=== PATIENT | female | born 2000 | race Caucasian/White ===

== ENCOUNTER → 2018-02-13 18:52 | Outpatient (CLI) | payer OTHER, SELFPAY ==
[2018-02-13 11:05] VITALS: BMI 26.7
--- OUTSIDE RECORDS SUMMARY | 2018-05-18 06:14 | XMS RPT_ITS ---
:2000 Author Organization OHIP Care Team Providers Name Role Phone Carmella Tejada Attending Unavailable Mallory, Carmella Attending Unavailable Equinunk, Carmella Attending Unavailable Mallory, Carmella Referring Unavailable PROBLEMS PROBLEMS DATE TYPE CONDITION / CODE ATTENDING STATUS SOURCE 02/14/2018 Unknown Z11.3 - Encounter Carmella Tejada Active Jason for screening for Community infections with a Hospital predominantly Repository sexual mode of transmission / Z11.3(ICD-10) 02/13/2018 Unknown N92.0 - Excessive Equinunk, Molly Active Jason and frequent Community menstruation with Hospital regular cycle / Repository N92.0(ICD-10) 02/13/2018 Unknown Z30.41 - Encounter Carmella Tejada Active Jason for surveillance of Community contraceptive pills Hospital / Z30.41(ICD-10) Repository PROCEDURES PROCEDURES No Procedure Records FoundRESULTS RESULTS SEMICONDUCTOR WAFERS ETCHER STRIPPER OFFICE VISIT Observed: 02/13/2018 Status: F Source: JASON REPORT 11:42 AM [facility] HOSPITAL REPOSITORY [facility] [address] [place] [address]. [address] [place] [address] OFFICE VISIT Date of Service: 02/13/18 MR#: [id number] Acct: [id number] Name: ESTEBAN VACA Rep #: [id number] : 2000 Provider: WILLY Tejada Age/Sex: 17/F [place] [facility] [place]: Signed Intake Vital Signs02/13/18 Height 5 ft 2 in 02/13/18 Weight: 146 lb 6 oz 02/13/18 Body Mass Index (BMI) 26.7 02/13/18 Blood Pressure 120/80 Intake Visit Reasons: Control Refill Associate Juvenile Court Judge Required: No Is patient in pain?: No Allergies No Known Allergies Allergy (Unverified 02/13/18 11:06) Medications levonorgestrel-ethinyl estradiol 0.1 mg-20 mcg tablet 1 tab PO QDAY #84 tab 02/13/18 [Rx Confirmed 02/13/18] Post menopausal: No Patient : No : No PFSH Social History Smoking Status: Never smoker alcohol intake: never substance use type: does not use seatbelt use: always do you feel safe at home: Yes HPI Control Refill: Details: ESTEBAN VACA is a 17 year old who presents for 1 year follow up use of Aviane for heavy menses. States works well. Denies side effects and wishes to continue. Now sexually partner. First partner for both. Female Reproductive History Cycle Length: 21-35 Bleeding Duration: 4 Questions: Metorrhagia: No, Sexually active: Yes, Dyspareunia: No, PCB: No Pregancy History 0 Elective abortions Hx Para Spontaneous abortions ROS Const Constitutional: Reports system reviewed and no additional complaints, except as docu GI GI: Denies abdominal pain or change in bowel habits Exam Const General: cooperative, healthy appearing Nutritional Appearance: well nourished Orientation: oriented x3 Neck Neck mass: No Thyroid: thyroid normal Resp Effort AND Inspection: normal respiratory effort Auscultation: clear to auscultation bilaterally Cardio Rate: regular rate Rhythm: regular rhythm Assessment AND Plan Problems 1. Menorrhagia with regular cycle N92.0 2. Oral contraceptive pill surveillance Z30.41 3. Screen for STD (sexually transmitted disease) Z11.3 Plan Refill Aviane, reviewed use, risks. Reviewed condom use GCC call only if positive RTO 1 year, prn with problems Medications Refilled: Coding Level of Care Code Off vis,est,level 3 Diagnoses Menorrhagia with regular cycle N92.0 Oral contraceptive pill surveillance Z30.41 Screen for STD (sexually transmitted disease) Z11.3 02/13/18 1142 <Electronically signed by Carmella LIMA> Date Carmella LIMA Cosigner Signature: Date (if applicable) CC: ALLERGIES ALLERGIES DATE TYPE / CODE NAME / CODE REACTION SEVERITY SOURCE 02/13/2018 Drug No Known Unknown [place] [facility] Allergy/4160 Allergies/F00 Hospital [address](SNOMED [id number](RXNOR Repository CT) M) ENCOUNTERS ENCOUNTERS ADMIT/DISCHARGE ACCOUNT ADMITTING ENCOUNTER LOCATION SOURCE NUMBER CLASS 02/13/2018 [id number] Ambulatory [place] [address] [facility] ing:LABSPEC Repository 02/13/2018/ [id number] Ambulatory BMSBuilding:B [place] [address] [place] Repository 05/04/2017 [id number] Ambulatory BMSBuilding:B [place] [address] [place] Repository PAYERS PAYERS ENCOUNTER GUARANTOR PAYER SUBSCRIBER SOURCE 02/13/2018 ESTEBAN [id number] Primary MAUREEN Poe [address], Insurance:MEDICAL WADEDOB: [place] [address]Tel: [facility] [id number] Hospital Number: Repository () [id number] Date:[id number] [address] [address]KN: 02/13/2018 Secondary NOT GIVENUNK Jason Insurance:SELF PAY [facility] Number: Effective Repository Date:2018-02-13 02/13/2018 ESTEBAN [id number] Primary MAUREEN Poe [address], Insurance:MEDICAL WADEDOB: [place] [address]Tel: [facility] [id number] Hospital Number: Repository () [id number] Date:[id number] [address]RJ: 02/13/2018 Secondary NOT GIVENUNK Jason Insurance:SELF PAY [facility] Number: Effective Repository Date:2018-01-12 05/04/2017 Primary NOT GIVENUNK Jason Insurance:SELF PAY [facility] Number: Effective Repository Date:2017-05-02
== END ==
PROVIDERS: Referring Provider Nurse Practitioner Women's Health; Visit Provider Nurse Practitioner Women's Health
DX: Z11.3 Encounter for screening for infections with a predominantly sexual mode of transmission (principal)
CPT/HCPCS: 87491; 87591

== ENCOUNTER → 2019-04-04 | Outpatient (CLI) | payer OTHER, SELFPAY ==
[2019-04-04 14:01] VITALS: BMI 26.7
[2019-04-04 21:51] LABS: Chlamydia Trachomatis by PCR Negative (Negative); Neisserai gonorrhoeae by PCR Negative (Negative); Probe Check PASS; Sample Adequacy Control PASS; Specimen Processing Control PASS
== END | disposition home or self-care (01) ==
LOC: LABSPEC 16:46
PROVIDERS: PCP Nurse Practitioner Family; Referring Provider Nurse Practitioner Women's Health; Visit Provider Nurse Practitioner Women's Health
DX: Z11.3 Encounter for screening for infections with a predominantly sexual mode of transmission (principal)
CPT/HCPCS: 87491; 87591

== ENCOUNTER → 2020-04-08 | Outpatient (CLI) | payer OTHER, SELFPAY ==
[2020-04-11 20:07] LABS: Chlamydia By Nucleic Acid AMP Negative (Negative)
[2020-04-11 21:09] LABS: Gonococcus By Nucleic Acid AMP Negative (Negative)
[2020-04-14 14:43] LABS: HPV Reflexed? NOT INDICATED
== END | disposition home or self-care (01) ==
LOC: LABSPEC 16:26
PROVIDERS: PCP Nurse Practitioner Family; Referring Provider Nurse Practitioner Women's Health; Visit Provider Nurse Practitioner Women's Health
DX: Z12.4 Encounter for screening for malignant neoplasm of cervix (principal); Z11.3 Encounter for screening for infections with a predominantly sexual mode of transmission
CPT/HCPCS: 87491; 87591; 88175; G0145

== ENCOUNTER → 2023-01-26 | Outpatient (CLI) | payer OTHER, SELFPAY ==
[2023-01-26 12:12] LABS: Absolute Lymphocyte Count 1.85 X10^3/uL (0.83-4.51); Absolute Neutrophil Count 2.3 X10^3/uL (2.0-7.7); Basophil# 0.03 X10^3/uL; Basophil% 0.6 % (0-1); Eosinophil# 0.22 X10^3/uL; Eosinophils% 4.7 % (0-5); Hemoglobin 14.2 g/dL (12.0-15.0); Lymphocyte # 1.85 X10^3/ul (0.83-4.51); Lymphocyte % 39.1 % (19-41); Mean Corpuscular Hgb 28.1 pg (27.0-32.0); Mean Platelet Vol. 12.1 fl (6.2-12.0); Monocyte# 0.31 X10^3/uL; Monocyte% 6.6 % (0-10); NRBC Flagged by Analyzer 0 % (0-5); Neutrophil # 2.31 X10^3/uL (2.7-7.7); Neutrophil % 48.8 % (47-70); Platelet Count 327 K/mm3 (150-450); RBC Distribution Width CV 13.4 % (11.6-14.6); RBC Distribution Width SD 41.6 fl (35.1-43.9); Red Blood Count 5.06 M/mm3 (4.2-5.4); White Blood Count 4.7 K/mm3 (4.4-11.0)
[2023-01-26 12:47] LABS: ALB/GLOB Ratio 0.9 RATIO (0.9-2.4); AST(SGOT) 18 U/L (15-37); Alanine Aminotransfer ALT/SGPT 18 U/L (13-56); Albumin, Serum 3.7 g/dL (3.2-5.0); Alkaline Phosphatase 76 U/L (45-117); Anion Gap 9 (5-15); BUN 10 mg/dL (7-18); BUN/Creat Ratio 13.8 RATIO (10-20); Calcium,Total 8.7 mg/dL (8.5-10.1); Chloride 108 mmol/L (98-107); Cholesterol 198 mg/dL (200); Creatinine, Serum 0.72 mg/dL (0.55-1.02); EST Glomerular Filtration Rate 105 mL/min (>60); Est Glom Filt Rate - Afr Amer 127 mL/min (>60); Globulin 3.9 g/dL (2.2-4.2); Glucose 91 mg/dL (74-106); High Density Lipoprotein 58 mg/dL; Potassium 4.1 mmol/L (3.5-5.1); Protein, Total 7.6 g/dL (6.4-8.2); Sodium Level 139 mmol/L (136-145); Thyroid Stim Hormone (TSH) 0.85 uIU/mL (0.358-3.74); Triglycerides 53 mg/dL; Very Low Density Lipoprotein 11 mg/dL (5-40)
[2023-01-26 13:00] LABS: Hemoglobin A1c 5.1 % (3.8-5.6)
== END | disposition home or self-care (01) ==
LOC: MFPLAB 10:16
PROVIDERS: PCP Family Medicine; Visit Provider Family Medicine
DX: Z00.00 Encounter for general adult medical examination without abnormal findings (principal); Z13.1 Encounter for screening for diabetes mellitus; Z13.220 Encounter for screening for lipoid disorders; Z13.29 Encounter for screening for other suspected endocrine disorder; Z13.0 Encounter for screening for diseases of the blood and blood-forming organs and certain disorders involving the immune mechanism
CPT/HCPCS: 36415; 80053; 80061; 83036; 84443; 85025

== ENCOUNTER → 2023-05-02 | Outpatient (CLI) | payer OTHER, SELFPAY ==
[2023-05-20 08:35] LABS: HPV Reflexed? NOT INDICATED
== END | disposition home or self-care (01) ==
LOC: LABSPEC 15:41
PROVIDERS: PCP Family Medicine; Referring Provider Nurse Practitioner Women's Health; Visit Provider Nurse Practitioner Women's Health
DX: Z12.4 Encounter for screening for malignant neoplasm of cervix (principal)
CPT/HCPCS: 88175; G0145

== ENCOUNTER → 2024-01-24 | Outpatient (CLI) | payer OTHER, SELFPAY ==
[2024-01-24 11:59] LABS: Absolute Lymphocyte Count 2.21 X10^3/uL (0.83-4.51); Absolute Neutrophil Count 2.4 X10^3/uL (2.0-7.7); Basophil# 0.04 X10^3/uL; Basophil% 0.8 % (0-1); Eosinophils% 3.8 % (0-5); Hematocrit 42.5 % (37-47); Hemoglobin 13.9 g/dL (12.0-15.0); Lymphocyte # 2.21 X10^3/ul (0.83-4.51); Lymphocyte % 42.1 % (19-41); Mean Corp Hgb Conc 32.7 g/dL (32-36); Mean Corpuscular Hgb 27.7 pg (27.0-32.0); Mean Corpuscular Volume 84.8 fL (81-99); Mean Platelet Vol. 12.2 fl (6.2-12.0); Monocyte# 0.37 X10^3/uL; NRBC Flagged by Analyzer 0 % (0-5); Neutrophil # 2.41 X10^3/uL (2.7-7.7); Neutrophil % 45.9 % (47-70); Platelet Count 335 K/mm3 (150-450); RBC Distribution Width CV 13.3 % (11.6-14.6); RBC Distribution Width SD 41.6 fl (35.1-43.9); Red Blood Count 5.01 M/mm3 (4.2-5.4); White Blood Count 5.3 K/mm3 (4.4-11.0)
[2024-01-24 12:40] LABS: ALB/GLOB Ratio 0.9 RATIO (0.9-2.4); AST(SGOT) 13 U/L (15-37); Alanine Aminotransfer ALT/SGPT 25 U/L (13-56); Albumin, Serum 3.7 g/dL (3.2-5.0); Alkaline Phosphatase 64 U/L (45-117); Anion Gap 5 (5-15); BUN 9 mg/dL (7-18); BUN/Creat Ratio 11.8 RATIO (10-20); Calcium,Total 9.1 mg/dL (8.5-10.1); Chloride 106 mmol/L (98-107); Cholesterol 231 mg/dL (200); Creatinine, Serum 0.76 mg/dL (0.55-1.02); EST Glomerular Filtration Rate 98 mL/min (>60); Est Glom Filt Rate - Afr Amer 119 mL/min (>60); Globulin 3.9 g/dL (2.2-4.2); Glucose 100 mg/dL (74-106); High Density Lipoprotein 54 mg/dL; Potassium 4.2 mmol/L (3.5-5.1); Protein, Total 7.6 g/dL (6.4-8.2); Sodium Level 137 mmol/L (136-145); Triglycerides 128 mg/dL; Very Low Density Lipoprotein 26 mg/dL (5-40)
== END | disposition home or self-care (01) ==
LOC: BIMLAB 09:54
PROVIDERS: PCP Internal Medicine; Referring Provider Internal Medicine; Visit Provider Internal Medicine
DX: Z00.00 Encounter for general adult medical examination without abnormal findings (principal)
CPT/HCPCS: 36415; 80053; 80061; 85025

== ENCOUNTER 2024-03-18 08:59 | Emergency (ER) | payer OTHER, SELFPAY ==
[2024-03-18 09:00] VITALS: BP 161/84; PULSE 92; RESP 16; TEMP 36.7; O2SAT 99; BMI 35.3
--- NOTE | 2024-03-18 09:42 | CT_ITS ---
STUDY: CT ABDOMEN AND PELVIS WITH CONTRAST REASON FOR EXAM: Female, 23 years old. Diffuse abdominal pain RADIATION DOSAGE (If Supplied By Facility): CTDIvol = ( 11.93 ) mGy, DLP = ( 923.51 ) mGycm TECHNIQUE: Transaxial images were obtained from the dome of the diaphragm to the symphysis pubis without oral contrast. IV 100mL Isovue-300 was administered. Sagittal and coronal images were reconstructed. Individualized dose optimization techniques were used for this CT. COMPARISON: None. FINDINGS: The visualized lung bases are unremarkable. The visualized portions of the heart are within normal limits. Normal liver. Normal gallbladder and extrahepatic biliary system. Normal spleen. Normal pancreas. Normal bilateral adrenal glands. Normal right kidney. Normal left kidney. Subtle submucosal thickening in the gastric antrum and pyloric channel suggests gastritis. Small and large bowel loops are decompressed and do not contain oral contrast. There is evidence of submucosal fat deposition in multiple bowel loops which can be a sign of inflammatory bowel disease. The appendix is visualized and appears normal. Appendix seen on coronal recon images 51 through 56 Normal abdominal aorta. Normal inferior vena cava. Normal retroperitoneum. Normal urinary bladder. Normal appearing uterus, no suspicious adnexal mass or free fluid Normal abdominal wall. Normal osseous structures. CT/Abdomen/Pelvis W IV Cont ONLY IMPRESSION: Submucosal thickening and edema in the gastric antrum and pyloric channel suggests gastritis Small and large bowel loops are decompressed. No CT evidence of obstruction or ileus. However, there is evidence of submucosal fat and position of bowel loops which can be a sign of inflammatory bowel disease. No suspicious solid organ abnormality No free intraperitoneal fluid, air, or suspicious adenopathy, normal appendix visualized Electronically Signed: Daniel Vera MD at 11:07 EST ,
--- NOTE | 2024-03-18 09:43 | ED.VIS.GI ---
HPI HPI - GI History of Present Illness Chief Complaint: Abd Pain Informant: patient Abdominal Pain/Flank Pain Onset: Days Context: Gradual Onset Timing: Continuous Quality: Aching Location: Diffuse Current Severity: Mild Maximum Severity: Mild Worsened by: Nothing Relieved by: Nothing Nausea/Vomiting/Emesis GI Symptom: Positive for Nausea and Vomiting Onset: Days Severity: Moderate Diarrhea/Melena/Hematochezia GI Symptom: Negative for Diarrhea, Melena or Hematochezia Associated Symptoms Associated Symptoms: Negative for Dysuria, Frequency, Hematuria or Urgency Narrative Narrative: 23-year-old female no seen past medical history. No prior abdominal surgeries. Last menstrual period was about 2 weeks ago. Never been . States she has had abdominal discomfort with nausea vomiting since Monday. Denies fever. She has had mild chills. No dysuria. She is having no diarrhea and really has not had a bowel movement for several days. Says she was seen at another emergency department on Monday they gave her IV fluids and did labs. Patient states he never really found a day with her labs. Prior similar symptoms: No Recent Illness/Hospitalization: No PFSH [facility] Medical History Gastritis Health care maintenance Home Medications ?Medication ?Instructions ?Recorded ?Last Taken ?Type levonorgestrel-ethinyl estradiol 1 tab PO QDAY #84 tabs 05/24/23 Unknown Rx 0.1 mg-20 mcg tablet (Aviane) cetirizine 10 mg tablet (Zyrtec) 10 mg PO QDAY 01/24/24 Unknown History famotidine 20 mg tablet (Pepcid) 20 mg PO QDAY PRN 01/24/24 Unknown History fluticasone propionate 50 1 spray intranasal QDAY PRN 01/24/24 Unknown History mcg/actuation nasal spray,suspension (Flonase Allergy Relief) guaifenesin 1,200 mg tablet, 1,200 mg PO ONCE PRN 01/24/24 Unknown History extended release 12 hr (Mucinex) omeprazole 40 mg capsule,delayed 40 mg PO QDAY #90 caps 01/24/24 Unknown Rx release ondansetron 4 mg disintegrating 4 mg PO Q6H PRN nausea and 03/18/24 Unknown Rx tablet vomiting #10 tabs Allergy/AdvReac Type Severity Reaction Status Date / Time No Known Allergies Allergy Verified 03/18/24 09:00 Family History Grandmother Breast cancer Anxiety Mother Anxiety Grandfather TIA (transient ischemic attack) Social History adopted: No household members: spouse current occupational status: employed 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 current occupational exposures/hazards: No Smoking Status: Never smoker alcohol intake: current alcohol intake frequency: a few times a month details: couple times per month substance use type: does not use what type of physical activity do you participate in: walking frequency: 1-2 times per week duration: 15-30 minutes/day seatbelt use: always do you feel safe at home: Yes ROS ROS ED ROS Narrative Nausea and vomiting. Abdominal pain. Constitutional Constitutional ED: Reports chills ENT ENT ED: Denies ear pain Cardiovascular Cardiovascular: Denies chest pain Respiratory/Chest Respiratory/Chest: Denies cough Gastrointestinal Gastrointestinal: Reports abdominal pain, nausea and vomiting; Denies diarrhea or melena Genitourinary Genitourinary ED: Denies dysuria or hematuria Musculoskeletal Musculoskeletal: Denies arthralgias Integumentary Denies abscess Neurologic Neurologic: Denies headache(s) Psychiatric Psychiatric: Denies anxiety Endocrine Endocrinology: Denies polydipsia Hematologic/Lymphatic Hematologic/Lymphatic: Denies easy bleeding or easy bruising Allergic/Immunologic Allergic/Immunologic ED: Denies mouth swelling, tongue swelling or urticaria EXAM Physical Exam Narrative Exam Narrative: Well-appearing 23-year-old female. Vital signs stable afebrile. H EENT exam pupils round reactive light. Moist mucous membranes. Neck nontender no lymphadenopathy. Lungs clear to auscultation bilaterally. Heart regular rhythm rate about 90 no murmur. Chest wall nontender. Back nontender. Abdomen soft mild diffusely tender no specific localizing tenderness. No McBurney's point tenderness. No hernia or mass. No obstruction or distention. Moving all 4 extremities. Nontender no edema. Normal strength. Normal range of motion. Neurologically she is awake and alert no focal motor deficits. Const Vital Signs: 03/18/24 09:00 03/18/24 11:00 03/18/24 13:00 Temperature 98.0 F Temperature Source Oral Pulse Rate 92 68 87 Respiratory Rate 16 16 16 Blood Pressure 161/84 H 136/81 H Blood Pressure Mean 109 99 Pulse Ox 99 99 99 Oxygen Delivery Method Room Air Room Air Positive well nourished and well developed; Negative for cachectic, contractures or unkempt General Appearance ED: well developed and NAD; Negative for unkempt, cachectic, contractures or pallor Nutritional Appearance: Negative for cachectic HEENT Reports moist mucous membranes normocephalic and atraumatic; Negative for trauma or tenderness Eyes PERRL and EOMs intact bilaterally General Eye ED: Negative for pale conjunctiva or scleral icterus Neck no lymphadenopathy, supple and no JVD General: Negative for tenderness Lymph Lymphatic: Negative for other Resp normal respiratory effort and clear to auscultation bilaterally Effort and Inspection: Negative for respiratory distress Auscultation: Negative for rales, rhonchi, wheezes or diminished lung sounds Cardio regular rate, regular rhythm, S1 normal heart sound, S2 normal heart sound and no murmurs Rate: Negative for bradycardia or tachycardic Rhythm: Negative for abnormal rhythm GI non-distended and no masses; Negative for non-tender GI Narrative: Mildly diffusely tender. No peritoneal signs. No specific right upper or right lower quadrant tenderness. No hernia or mass. No obstruction. Inspection: Negative for abdominal distention Palpation: soft and tender; Negative for guarding, rigid or rebound tenderness present Back/Spine no CVA tenderness General Back: Negative for CVA tenderness Cervical Spine: Negative for cervical spine tenderness Thoracic Spine / Upper Back: Negative for thoracic spinal tenderness Lumbar Spine / Lower Back: Negative for lumbar spinal tenderness Coccyx: Negative for other Extremity full ROM General Extremety ED: Negative for edema or tenderness General Extremity: Negative for edema Neuro CN's II-XII intact bilaterally and moves all extremities Sensorium / Orientation: alert, oriented to person, oriented to place and oriented to time; Negative for orientation impaired, confused or lethargic Motor Exam: strength 5/5 throughout Psych mental status grossly normal and thought process normal Appearance: Negative for unkempt Attitude: No agitated Mood & Affect: Negative for depressed, anxious or tearful Skin no wounds General Skin Exam: Negative for jaundice or pallor Lesions: no lesions Rashes: no rashes Trauma: Negative for abrasion Nails: Negative for discolored MDM MDM MDM Narrative Medical decision making narrative: 23-year-old female nausea and vomiting suspect viral syndrome however she is not improving and is complaining of abdominal discomfort with mild tenderness. CAT scan labs are being obtained. IV Zofran for nausea. IV fluids. Repeat exam patient is doing well at 1:25 PM. Abdomen benign. We went over her lab work and her CAT scan. I feel this is a viral syndrome. She will be discharged home with Zofran. Fluids and rest. Follow-up with not improving or return if worse. Patient is comfortable with the plan. History & Record Review Discussion w/independent historian: Patient Additional record(s) reviewed:: Prior inpatient record, Prior outpatient record, Prior ED visit and Prior labs Lab Data Attestation: I reviewed the patient's lab results. Lab results narrative: CBC shows a white count of 7. H&H 14 and 43. Platelets 350. Electrolytes show gap 11. Normal BUN of 8 and creatinine 0.8. Glucose 98. Liver enzymes are unremarkable. Lipase normal at 54. Serum test negative. UA negative. CAT scan no acute abnormality. Labs: Laboratory Results - last 24 hr 03/18/24 03/18/24 09:23 10:26 WBC 7.8 RBC 5.22 Hgb 14.7 Hct 43.3 MCV 83.0 MCH 28.2 MCHC 33.9 RDW Std Deviation 39.3 RDW Coeff of Adryan 13.2 Plt Count 350 MPV 12.0 Immature Gran % (Auto) 0.500 Neut % (Auto) 70.8 H Lymph % (Auto) 23.1 [place] % (Auto) 4.6 Eos % (Auto) 0.5 Baso % (Auto) 0.5 Absolute Neuts (auto) 5.5 Absolute Lymphs (auto) 1.79 Nucleated RBC % 0 Sodium 138 Potassium 3.5 Chloride 105 Carbon Dioxide 22.0 Anion Gap 11 BUN 8 Creatinine 0.82 Estim Creat Clear Calc 107.75 Est GFR (MDRD) Af Amer 110 Est GFR (MDRD) Non-Af 91 BUN/Creatinine Ratio 9.8 L Glucose 98 Calcium 10.0 Total Bilirubin 0.50 AST 15 ALT 20 Alkaline Phosphatase 67 Total Protein 8.5 H Albumin 4.1 Globulin 4.4 H Albumin/Globulin Ratio 0.9 Lipase 54 Serum , Qual NEGATIVE Urine Color Yellow Urine Clarity Clear Urine pH 6.0 Ur Specific [place] 1.010 Urine Protein 15 H Urine Glucose (UA) Normal Urine Ketones 150 A* Urine Occult Blood 25 H Urine Nitrite Negative Urine Bilirubin Negative Urine Urobilinogen Normal Ur Leukocyte Esterase Negative Urine RBC 0 SEEN Urine WBC 0 SEEN Ur Squamous Epith Cells 0-5 SEEN Urine Bacteria 0 SEEN Urine Mucus 0 SEEN Radiography Diagnostic Testing: Clinical Impression(s) from Imaging Studies Abdomen/Pelvis CT 03/18/24 09:42 IMPRESSION: Submucosal thickening and edema in the gastric antrum and pyloric channel suggests gastritis Small and large bowel loops are decompressed. No CT evidence of obstruction or ileus. However, there is evidence of submucosal fat and position of bowel loops which can be a sign of inflammatory bowel disease. No suspicious solid organ abnormality No free intraperitoneal fluid, air, or suspicious adenopathy, normal appendix visualized Electronically Signed: Daniel Vera MD at 11:07 EST , Discharge Plan Triage Chief Complaint: Abd Pain ED Provider: Corky Villegas Dx/Rx/DC Orders Clinical Impression: Viral syndrome, Vomiting Instructions: ED Vomiting (Adult) Prescriptions: New ondansetron 4 mg tablet,disintegrating 4 mg PO Q6H PRN (Reason: nausea and vomiting) Qty: 10 0RF No Action cetirizine [Zyrtec] 10 mg tablet 10 mg PO QDAY fluticasone propionate [Flonase Allergy Relief] 50 mcg/actuation spray,suspension 1 spray intranasal QDAY PRN Rx Instructions: administer into each nostril guaifenesin [Mucinex] 1,200 mg tablet extended release 12hr 1,200 mg PO ONCE PRN Patient Comments: takes PRN for allergies/drainage famotidine [Pepcid] 20 mg tablet 20 mg PO QDAY PRN Patient Comments: takes for reflux omeprazole 40 mg capsule,delayed release(DR/EC) 40 mg PO QDAY Qty: 90 1RF Rx Instructions: Take 30 minutes before breakfast levonorgestrel-ethinyl estrad [Aviane] 0.1-20 mg-mcg tablet 1 tab PO QDAY Qty: 84 4RF Primary Care Provider: Ariella Green Referrals: Ariella Green MD [Primary Care Provider] - 3-5 Days if not improving Activity Restrictions/Additional Instructions: Plenty of fluids and rest. Increase diet as tolerated. Zofran as needed for nausea. You may swallow or let dissolve on your tongue. Follow-up with your doctor if not improving or return if worse. Your labs and CAT scan look good. Print Language: Kiswahili Disposition Disposition: Home, Self Care
[2024-03-18 09:49] LABS: Absolute Lymphocyte Count 1.79 X10^3/uL (0.83-4.51); Absolute Neutrophil Count 5.5 X10^3/uL (2.0-7.7); Basophil# 0.04 X10^3/uL; Basophil% 0.5 % (0-1); Eosinophil# 0.04 X10^3/uL; Eosinophils% 0.5 % (0-5); Hematocrit 43.3 % (37-47); Hemoglobin 14.7 g/dL (12.0-15.0); Lymphocyte # 1.79 X10^3/ul (0.83-4.51); Lymphocyte % 23.1 % (19-41); Mean Corp Hgb Conc 33.9 g/dL (32-36); Mean Corpuscular Hgb 28.2 pg (27.0-32.0); Monocyte# 0.36 X10^3/uL; Monocyte% 4.6 % (0-10); NRBC Flagged by Analyzer 0 % (0-5); Neutrophil # 5.48 X10^3/uL (2.7-7.7); Neutrophil % 70.8 % (47-70); Platelet Count 350 K/mm3 (150-450); RBC Distribution Width CV 13.2 % (11.6-14.6); RBC Distribution Width SD 39.3 fl (35.1-43.9); Red Blood Count 5.22 M/mm3 (4.2-5.4); White Blood Count 7.8 K/mm3 (4.4-11.0)
[2024-03-18] MEDS: Ondansetron 4 MG/2 ML Vial IV ×2 (09:49→13:11)
[2024-03-18] MEDS: 0.9% Normal Saline (1000mL) 1,000 ML 999 ML IV (09:49)
[2024-03-18 10:05] LABS: ALB/GLOB Ratio 0.9 RATIO (0.9-2.4); AST(SGOT) 15 U/L (15-37); Alanine Aminotransfer ALT/SGPT 20 U/L (13-56); Albumin, Serum 4.1 g/dL (3.2-5.0); Alkaline Phosphatase 67 U/L (45-117); Anion Gap 11 (5-15); BUN 8 mg/dL (7-18); BUN/Creat Ratio 9.8 RATIO (10-20); Chloride 105 mmol/L (98-107); Creatinine, Serum 0.82 mg/dL (0.55-1.02); EST Glomerular Filtration Rate 91 mL/min (>60); Est Glom Filt Rate - Afr Amer 110 mL/min (>60); Estimated Creatinine Clearance 107.75 ml/min; Globulin 4.4 g/dL (2.2-4.2); Glucose 98 mg/dL (74-106); Lipase 54 U/L (13-75); Potassium 3.5 mmol/L (3.5-5.1); Protein, Total 8.5 g/dL (6.4-8.2); Sodium Level 138 mmol/L (136-145)
[2024-03-18 10:20] LABS: Internal QC Validated? YES +Cl - CLEAR BKGD; Pregnancy, Serum, hCG Quali. NEGATIVE Negative
[2024-03-18 10:31] LABS: Bacteria 0 SEEN /hpf (None Seen); Mucous, Urine 0 SEEN /hpf (<or=2+); Red Blood Cells-Urine 0 SEEN /hpf (0-5); White Blood Cells 0 SEEN /hpf (0-5)
[2024-03-18 10:33] LABS: Color, Urine Yellow (Yellow); Glucose, Dipstick Normal (Normal); Leukocyte Esterase-Dipstick Negative /ul (Negative); Nitrite-Dipstick Negative (Negative); Occult Blood-Urine 25 /ul (Negative); Protein-Dipstick 15 mg/dl (Negative); Urine Bilirubin Dipstick Negative (Negative); Urine Clarity Clear (Clear); Urine Urobilinogen Normal (Normal)
[2024-03-18 10:38] LABS: Ketone-Dipstick 150 mg/dl (Negative)
[2024-03-18 10:50] LABS: Squamous Epithelial Cells - UA 0-5 SEEN /hpf (5-10)
[2024-03-18 11:00] VITALS: BP 136/81; PULSE 68; RESP 16; O2SAT 99
[2024-03-18 13:00] VITALS: PULSE 87; RESP 16; O2SAT 99
== END 2024-03-18 13:34 | disposition home or self-care (01) ==
PROVIDERS: Emergency Provider Emergency Medicine; PCP Internal Medicine; Visit Provider Emergency Medicine
DX: B34.9 Viral infection, unspecified (principal)
CPT/HCPCS: 74177; 80053; 81001; 83690; 84703; 85025; 96361; 96374; 96376; 99283; Q9967; A4216; J2405

== ENCOUNTER → 2024-03-27 | Outpatient (CLI) | payer OTHER, SELFPAY ==
[2024-03-27 15:24] LABS: Absolute Lymphocyte Count 1.33 X10^3/uL (0.83-4.51); Absolute Neutrophil Count 7.8 X10^3/uL (2.0-7.7); Basophil# 0.03 X10^3/uL; Basophil% 0.3 % (0-1); Hematocrit 46.3 % (37-47); Hemoglobin 15.1 g/dL (12.0-15.0); Lymphocyte # 1.33 X10^3/ul (0.83-4.51); Lymphocyte % 14.1 % (19-41); Mean Corp Hgb Conc 32.6 g/dL (32-36); Mean Corpuscular Hgb 27.6 pg (27.0-32.0); Mean Corpuscular Volume 84.6 fL (81-99); Mean Platelet Vol. 13.2 fl (6.2-12.0); Monocyte% 2.1 % (0-10); NRBC Flagged by Analyzer 0 % (0-5); Neutrophil # 7.84 X10^3/uL (2.7-7.7); Neutrophil % 83.1 % (47-70); Platelet Count 312 K/mm3 (150-450); RBC Distribution Width CV 13.2 % (11.6-14.6); RBC Distribution Width SD 41.1 fl (35.1-43.9); Red Blood Count 5.47 M/mm3 (4.2-5.4); White Blood Count 9.4 K/mm3 (4.4-11.0)
[2024-03-27 16:09] LABS: ALB/GLOB Ratio 0.9 RATIO (0.9-2.4); AST(SGOT) 16 U/L (15-37); Alanine Aminotransfer ALT/SGPT 30 U/L (13-56); Albumin, Serum 4.2 g/dL (3.2-5.0); Alkaline Phosphatase 63 U/L (45-117); Anion Gap 11 (5-15); BUN 10 mg/dL (7-18); BUN/Creat Ratio 12.2 RATIO (10-20); Calcium,Total 9.9 mg/dL (8.5-10.1); Chloride 104 mmol/L (98-107); Creatinine, Serum 0.82 mg/dL (0.55-1.02); EST Glomerular Filtration Rate 90 mL/min (>60); Est Glom Filt Rate - Afr Amer 109 mL/min (>60); Globulin 4.5 g/dL (2.2-4.2); Glucose 105 mg/dL (74-106); Potassium 4.2 mmol/L (3.5-5.1); Protein, Total 8.7 g/dL (6.4-8.2); Sodium Level 136 mmol/L (136-145); T4 Free Direct 1.39 ng/dL (0.76-1.46); Thyroid Stim Hormone (TSH) 0.782 uIU/mL (0.358-3.740)
== END | disposition home or self-care (01) ==
LOC: BIMLAB 11:35
PROVIDERS: PCP Internal Medicine; Visit Provider Internal Medicine
DX: Z13.29 Encounter for screening for other suspected endocrine disorder (principal); B34.9 Viral infection, unspecified; R11.2 Nausea with vomiting, unspecified
CPT/HCPCS: 36415; 80053; 84439; 84443; 85025

== ENCOUNTER 2024-04-30 05:01 | Emergency (ER) | payer OTHER, SELFPAY ==
[2024-04-30 05:03] VITALS: BP 143/92; PULSE 104; RESP 18; TEMP 36.5; O2SAT 97; BMI 32.6
[2024-04-30 05:31] VITALS: BP 126/76; PULSE 88; RESP 16; O2SAT 99
--- NOTE | 2024-04-30 05:36 | ED.VIS.GI ---
HPI HPI - GI History of Present Illness Chief Complaint: Nausea/Vomiting Informant: patient Narrative Narrative: Patient is a 23-year-old female with history of anxiety and asthma presenting with 2 months of GI symptoms that she feels are worsening. States over this time she has had a 20 pound unintentional weight loss. She has seen her PCP a couple times as well as GI. She has an EGD scheduled for next month. She states that last night she was having worsening nausea and vomiting but she states is mostly dry heaves. She is every once while she will vomit up white foam or dark bile. She started to feel shaky and lightheaded sometimes. She saw her PCP as her blood pressure and heart rate has been elevated was prescribed propranolol. She has her bowel movements have been irregular and yesterday they were small and mucus-like but today she has not had any bowel movements. She denies any fevers. Denies any black or blood in her stool. She does not think she is she just finished her menstrual cycle. She states her anxiety has been worsening with all the symptoms. States she overall just does not feel good and wants to feel better/figure out why she has been feeling so bad. States her acid reflux symptoms have been quite severe. She states she was increased to omeprazole twice a day with only minimal help. She denies any tobacco or THC use. States she only has occasional alcohol use but not recently. Denies any illicit drug use. Had Zofran last night for her symptoms but no other medications. No other complaints or concerns reported at this time. [facility] Medical History Elevated blood pressure reading without diagnosis of hypertension Screening for thyroid disorder Nausea and vomiting Gastritis Health care maintenance Home Medications ?Medication ?Instructions ?Recorded ?Last Taken ?Type levonorgestrel-ethinyl estradiol 1 tab PO QDAY #84 tabs 05/24/23 Unknown Rx 0.1 mg-20 mcg tablet (Aviane) cetirizine 10 mg tablet (Zyrtec) 10 mg PO QDAY 01/24/24 Unknown History fluticasone propionate 50 1 spray intranasal QDAY PRN 01/24/24 Unknown History mcg/actuation nasal spray,suspension (Flonase Allergy Relief) guaifenesin 1,200 mg tablet, 1,200 mg PO ONCE PRN congestion 01/24/24 Unknown History extended release 12 hr (Mucinex) ondansetron 4 mg disintegrating 4 mg PO Q6H PRN nausea and 03/20/24 Unknown Rx tablet vomiting #60 tabs omeprazole 40 mg capsule,delayed 40 mg PO BID 3 months #180 caps 04/25/24 Unknown Rx release fluoxetine 10 mg capsule 30 mg (3 x 10 mg) PO QDAY #90 caps 04/29/24 Unknown Rx propranolol 20 mg tablet 20 mg PO BID #60 tabs 04/29/24 Unknown Rx hydroxyzine pamoate 25 mg capsule 50 mg (2 x 25 mg) PO TID PRN PRN 04/30/24 Unknown Rx Anxiety #30 CAPSULES metoclopramide HCl 5 mg tablet 5 mg PO Q6H PRN nausea and 04/30/24 Unknown Rx (Reglan) vomiting #20 tabs Allergy/AdvReac Type Severity Reaction Status Date / Time Seasonal Allergies: Uncoded Allergy Mild Other Verified 04/30/24 05:02 Family History Grandmother Breast cancer Anxiety Mother Anxiety Grandfather TIA (transient ischemic attack) Social History adopted: No household members: spouse current occupational status: employed 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 current occupational exposures/hazards: No Smoking Status: Never smoker alcohol intake: current alcohol intake frequency: a few times a month details: couple times per month substance use type: does not use what type of physical activity do you participate in: walking frequency: 1-2 times per week duration: 15-30 minutes/day seatbelt use: always do you feel safe at home: Yes ROS ROS ED Constitutional Constitutional ED: Reports sweats; Denies chills or fever(s) Respiratory/Chest Respiratory/Chest: Denies cough or dyspnea Gastrointestinal Gastrointestinal: Reports abdominal pain, nausea and vomiting; Denies constipation or diarrhea Genitourinary Genitourinary ED: Denies dysuria or urinary frequency Musculoskeletal Musculoskeletal: Denies arthralgias or myalgias Integumentary Denies rash Neurologic Neurologic: Reports weakness Psychiatric Psychiatric: Reports anxiety EXAM Physical Exam Const Vital Signs: 04/30/24 05:03 04/30/24 05:31 04/30/24 07:02 Temperature 97.7 F L Temperature Source Oral Pulse Rate 104 H 88 67 Respiratory Rate 18 16 19 H Blood Pressure 143/92 H 126/76 H 123/78 H Blood Pressure Mean 109 92 93 Pulse Ox 97 99 98 Oxygen Delivery Method Room Air Room Air Room Air 04/30/24 07:23 Temperature 98.2 F Temperature Source Pulse Rate 77 Respiratory Rate 18 Blood Pressure 122/78 H Blood Pressure Mean 92 Pulse Ox 97 Oxygen Delivery Method Positive well nourished and well developed General Appearance ED: well developed and NAD HEENT HEENT Narrative: Mildly dry mucosal membranes normocephalic and atraumatic Eyes PERRL Neck supple Resp normal respiratory effort and clear to auscultation bilaterally Cardio regular rhythm and no murmurs Rate: tachycardic GI non-tender Inspection: Negative for abdominal distention Auscultation: hypoactive bowel sounds Palpation: soft; Negative for tender, guarding or rigid Extremity full ROM Neuro Sensorium / Orientation: alert, oriented to person, oriented to place and oriented to time Motor Exam: Negative for general weakness Psych mental status grossly normal Mood & Affect: anxious Skin no wounds Rashes: no rashes MDM MDM MDM Narrative Medical decision making narrative: Patient is evaluated for continued/worsening GI symptoms including nausea, vomiting acid reflux no lower abdominal pain. Chart review shows that patient has CT of her abdomen and pelvis on 03/18/2024 which showed subtle submucosal thickening in the gastric antrum and pyloric channel suggestive of gastritis. There was some submucosal fat deposits in the multiple bowel loops which could be significant for inflammatory bowel disease. Of note patient denies any known family history of inflammatory bowel disease. She saw [facility] on 04/22/2024 for the symptoms. Plan to continue omeprazole, EGD and trial lactose-free diet as well as stool testing. She most recently saw her PCP on 04/25/2024 with worsening of her reflux symptoms she was switched to physical twice daily. Will obtain blood work. Vital signs significant initially for hypertension tachycardia but he normalized when patient sits down. Differential includes gastritis, peptic ulcer disease, inflammatory bowel disease, pancreatitis, cholecystitis., Dehydration, and diverticulitis. Will start with lab work and treat patient symptomatically with Zofran, Toradol and IV fluids as well as IV Pepcid. Lab work largely normal. Hemoglobin actually mildly up. Question there could be small mount of hemoconcentration. Low suspicion for bleeding ulcer given normal BUN and uptrending hemoglobin. Patient on repeat evaluation feels improved. I states she still nauseous. Will given a dose of Reglan and GI cocktail. Anticipate she tolerates this will be discharged home with outpatient GI and PCP follow-up. Patient is agreeable with this. Will be given return precautions. Given improvement of symptoms and normal white blood cell count with no acute transaminitis, elevated lipase or other acute abnormalities I do not think she requires imaging at this time. Patient be discharged home with prescription for Reglan per her request as well as a prescription for hydroxyzine for her anxiety per her request. Lab Data Attestation: I reviewed the patient's lab results. Labs: Laboratory Results - last 24 hr 04/30/24 04/30/24 05:15 06:38 WBC 9.8 RBC 5.39 Hgb 15.5 H Hct 45.3 MCV 84.0 MCH 28.8 MCHC 34.2 RDW Std Deviation 41.1 RDW Coeff of Adryan 13.4 Plt Count 333 MPV 12.1 H Immature Gran % (Auto) 0.400 Neut % (Auto) 74.2 H Lymph % (Auto) 20.4 [place] % (Auto) 4.3 Eos % (Auto) 0.3 Baso % (Auto) 0.4 Absolute Neuts (auto) 7.3 Absolute Lymphs (auto) 2.00 Nucleated RBC % 0 Sodium 136 Potassium 3.9 Chloride 99 Carbon Dioxide 22.2 Anion Gap 15 BUN 8 Creatinine 0.79 Estim Creat Clear Calc 107.34 Est GFR (MDRD) Non-Af 107 BUN/Creatinine Ratio 9.8 L Glucose 115 H Calcium 10.1 Total Bilirubin 0.41 AST 14 ALT 15 Alkaline Phosphatase 72 Total Protein 8.0 Albumin 4.7 Globulin 3.3 Albumin/Globulin Ratio 1.4 Lipase 28 Urine Color Straw Urine Clarity Clear Urine pH 7.0 Ur Specific [place] 1.005 Urine Protein 15 H Urine Glucose (UA) Normal Urine Ketones 15 H Urine Occult Blood 10 H Urine Nitrite Negative Urine Bilirubin Negative Urine Urobilinogen Normal Ur Leukocyte Esterase Negative Urine RBC 0 SEEN Urine WBC 0 SEEN Ur Squamous Epith Cells 0-5 SEEN Urine Bacteria RARE Urine Mucus 0 SEEN Urine Test Negative Discharge Plan Triage Chief Complaint: Nausea/Vomiting ED Provider: Hailee Gross Dx/Rx/DC Orders Clinical Impression: Nausea and vomiting, Anxiety, Abdominal pain of unknown etiology Instructions: ED Abdominal Pain Unkn Cause Fem Prescriptions: New metoclopramide HCl [Reglan] 5 mg tablet 5 mg PO Q6H PRN (Reason: nausea and vomiting) Qty: 20 0RF hydroxyzine pamoate 25 mg capsule 50 mg PO TID PRN PRN (Reason: Anxiety) Qty: 30 0RF No Action cetirizine [Zyrtec] 10 mg tablet 10 mg PO QDAY fluticasone propionate [Flonase Allergy Relief] 50 mcg/actuation spray,suspension 1 spray intranasal QDAY PRN Rx Instructions: administer into each nostril guaifenesin [Mucinex] 1,200 mg tablet extended release 12hr 1,200 mg PO ONCE PRN (Reason: congestion) Patient Comments: takes PRN for allergies/drainage omeprazole 40 mg capsule,delayed release(DR/EC) 40 mg PO BID 90 Days Qty: 180 1RF Rx Instructions: Take 30 minutes before breakfast and 4 hours after dinner levonorgestrel-ethinyl estrad [Aviane] 0.1-20 mg-mcg tablet 1 tab PO QDAY Qty: 84 4RF ondansetron 4 mg tablet,disintegrating 4 mg PO Q6H PRN (Reason: nausea and vomiting) Qty: 60 1RF fluoxetine 10 mg capsule 30 mg PO QDAY Qty: 90 1RF propranolol 20 mg tablet 20 mg PO BID Qty: 60 0RF Primary Care Provider: Ariella Green Referrals: Ariella Green MD [Primary Care Provider] - Activity Restrictions/Additional Instructions: Your workup today was largely reassuring. Please continue to follow-up outpatient with your primary care doctor as well as GI. Call the GI office to see if they can get you in sooner for endoscopy. Print Language: Divehi Disposition Disposition: Home, Self Care
[2024-04-30 05:42] LABS: Absolute Neutrophil Count 7.3 X10^3/uL (2.0-7.7); Basophil# 0.04 X10^3/uL; Basophil% 0.4 % (0-1); Eosinophil# 0.03 X10^3/uL; Eosinophils% 0.3 % (0-5); Hematocrit 45.3 % (37-47); Hemoglobin 15.5 g/dL (12.0-15.0); Lymphocyte % 20.4 % (19-41); Mean Corp Hgb Conc 34.2 g/dL (32-36); Mean Corpuscular Hgb 28.8 pg (27.0-32.0); Mean Platelet Vol. 12.1 fl (6.2-12.0); Monocyte# 0.42 X10^3/uL; Monocyte% 4.3 % (0-10); NRBC Flagged by Analyzer 0 % (0-5); Neutrophil # 7.25 X10^3/uL (2.7-7.7); Neutrophil % 74.2 % (47-70); Platelet Count 333 K/mm3 (150-450); RBC Distribution Width CV 13.4 % (11.6-14.6); RBC Distribution Width SD 41.1 fl (35.1-43.9); Red Blood Count 5.39 M/mm3 (4.2-5.4); White Blood Count 9.8 K/mm3 (4.4-11.0)
[2024-04-30] MEDS: Ketorolac 15 MG/ML Vial IV (05:42)
[2024-04-30] MEDS: Ondansetron 4 MG/2 ML Vial IV (05:42)
[2024-04-30] MEDS: 0.9% Normal Saline (1000mL) 1,000 ML 999 ML IV (05:42)
[2024-04-30 06:34] LABS: ALB/GLOB Ratio 1.4 RATIO (0.9-2.4); AST(SGOT) 14 U/L (<=31); Alanine Aminotransfer ALT/SGPT 15 U/L (<=34); Albumin, Serum 4.7 g/dL (3.5-5.0); Alkaline Phosphatase 72 U/L (35-104); Anion Gap 15 (5-15); BUN 8 mg/dL (4-19); BUN/Creat Ratio 9.8 RATIO (10-20); Calcium,Total 10.1 mg/dL (7.6-11.0); Carbon Dioxide 22.2 mmol/L (21.0-32.0); Chloride 99 mmol/L (98-108); Creatinine, Serum 0.79 mg/dL (0.70-1.20); EST Glomerular Filtration Rate 107 (>60); Estimated Creatinine Clearance 107.34 ml/min (50-250); Globulin 3.3 g/dL (2.2-4.2); Glucose 115 mg/dL (70-99); Lipase 28 U/L (13-75); Potassium 3.9 mmol/L (3.3-5.1); Sodium Level 136 mmol/L (133-145); Total Bilirubin 0.41 mg/dL (0.00-1.30)
[2024-04-30] MEDS: Metoclopramide 10 MG/2 ML Vial 5 MG IV (06:47)
[2024-04-30 06:54] LABS: Mucous, Urine 0 SEEN /hpf (<or=2+); White Blood Cells 0 SEEN /hpf (0-5)
[2024-04-30 06:56] LABS: Color, Urine Straw (Yellow); Glucose, Dipstick Normal (Normal); Ketone-Dipstick 15 mg/dl (Negative); Leukocyte Esterase-Dipstick Negative /ul (Negative); Nitrite-Dipstick Negative (Negative); Occult Blood-Urine 10 /ul (Negative); Protein-Dipstick 15 mg/dl (Negative); Specific Gravity, Urine 1.005 (1.002-1.030); Urine Bilirubin Dipstick Negative (Negative); Urine Clarity Clear (Clear); Urine Urobilinogen Normal (Normal)
[2024-04-30 07:02] VITALS: BP 123/78; PULSE 67; RESP 19; O2SAT 98
[2024-04-30 07:20] LABS: Red Blood Cells-Urine 0 SEEN /hpf (0-5); Squamous Epithelial Cells - UA 0-5 SEEN /hpf (5-10)
[2024-04-30 07:21] LABS: Bacteria RARE /hpf (None Seen); Internal QC Validated? YES +Cl - CLEAR BKGD; Pregnancy, Urine Negative Negative
[2024-04-30 07:22] LABS: Record Kit Lot#,Urine Preg 899023
[2024-04-30 07:23] VITALS: BP 122/78; PULSE 77; RESP 18; TEMP 36.8; O2SAT 97
== END 2024-04-30 07:29 | disposition home or self-care (01) ==
PROVIDERS: Emergency Provider Emergency Medicine; PCP Internal Medicine; Visit Provider Emergency Medicine
DX: R11.2 Nausea with vomiting, unspecified (principal); R10.9 Unspecified abdominal pain; F41.9 Anxiety disorder, unspecified; Z79.899 Other long term (current) drug therapy
CPT/HCPCS: 80053; 81001; 81025; 83690; 85025; 96361; 96374; 96375; 99284; A4216; J2405

== ENCOUNTER 2024-05-01 11:05 | Emergency (ER) | payer OTHER, SELFPAY ==
[2024-05-01 11:06] VITALS: BP 148/94; PULSE 84; RESP 15; TEMP 36.2; O2SAT 99
--- NOTE | 2024-05-01 12:27 | ED.VIS.GI ---
HPI HPI - GI History of Present Illness Chief Complaint: Nausea/Vomiting Informant: patient and parent Abdominal Pain/Flank Pain Onset: Month(s) Nausea/Vomiting/Emesis GI Symptom: Positive for Nausea, Vomiting and - (Intermittently for 2 months.) Severity: Mild Diarrhea/Melena/Hematochezia GI Symptom: Negative for Diarrhea, Melena or Hematochezia Associated Symptoms Associated Symptoms: Negative for Dysuria, Frequency, Hematuria or Urgency Narrative Narrative: 23-year-old female no significant past medical or surgical history. States she has had intermittent nausea and vomiting for 2 months. About 20 pound weight loss. She was seen yesterday in emergency department and had negative labs. Recently on 18 March she had a CAT scan that was unremarkable. She has been seen in GI office by one of the nurse practitioners. She is scheduled for an endoscopy in May. Basically she is just frustrated with not getting better. She is using both Zofran at home and Reglan with limited relief. Prior similar symptoms: Yes Recent Illness/Hospitalization: No PFSH PFSH Medical History Elevated blood pressure reading without diagnosis of hypertension Screening for thyroid disorder Nausea and vomiting Gastritis Health care maintenance Home Medications ?Medication ?Instructions ?Recorded ?Last Taken ?Type levonorgestrel-ethinyl estradiol 1 tab PO QDAY #84 tabs 05/24/23 Unknown Rx 0.1 mg-20 mcg tablet (Aviane) cetirizine 10 mg tablet (Zyrtec) 10 mg PO QDAY 01/24/24 Unknown History fluticasone propionate 50 1 spray intranasal QDAY PRN 01/24/24 Unknown History mcg/actuation nasal spray,suspension (Flonase Allergy Relief) guaifenesin 1,200 mg tablet, 1,200 mg PO ONCE PRN congestion 01/24/24 Unknown History extended release 12 hr (Mucinex) ondansetron 4 mg disintegrating 4 mg PO Q6H PRN nausea and 03/20/24 Unknown Rx tablet vomiting #60 tabs omeprazole 40 mg capsule,delayed 40 mg PO BID 3 months #180 caps 04/25/24 Unknown Rx release fluoxetine 10 mg capsule 30 mg (3 x 10 mg) PO QDAY #90 caps 04/29/24 Unknown Rx propranolol 20 mg tablet 20 mg PO BID #60 tabs 04/29/24 Unknown Rx hydroxyzine pamoate 25 mg capsule 50 mg (2 x 25 mg) PO TID PRN PRN 04/30/24 Unknown Rx Anxiety #30 CAPSULES metoclopramide HCl 5 mg tablet 5 mg PO Q6H PRN nausea and 04/30/24 Unknown Rx (Reglan) vomiting #20 tabs Allergy/AdvReac Type Severity Reaction Status Date / Time Seasonal Allergies: Uncoded Allergy Mild Other Verified 05/01/24 11:09 Family History Grandmother Breast cancer Anxiety Mother Anxiety Grandfather TIA (transient ischemic attack) Social History adopted: No household members: spouse current occupational status: 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 Constitutional Constitutional ED: Denies chills or fever(s) ENT ENT ED: Denies ear pain Cardiovascular Cardiovascular: Denies chest pain Respiratory/Chest Respiratory/Chest: Denies cough Gastrointestinal Gastrointestinal: Reports nausea and vomiting; Denies abdominal pain, constipation, diarrhea or melena Genitourinary Genitourinary ED: Denies dysuria or hematuria Musculoskeletal Musculoskeletal: Denies arthralgias or back pain Integumentary Denies abscess Neurologic Neurologic: Denies headache(s) Psychiatric Psychiatric: Reports anxiety Endocrine Endocrinology: Denies polydipsia Hematologic/Lymphatic Hematologic/Lymphatic: Denies easy bleeding Allergic/Immunologic Allergic/Immunologic ED: Denies mouth swelling, tongue swelling or urticaria EXAM Physical Exam Narrative Exam Narrative: Well-appearing 23-year-old female sitting upright in a chair in the hallway due to current volume and acuity. Accompanied by her mom. Vital signs are stable. She is afebrile. She does not look septic or toxic. She does not look significantly dehydrated. No distress. HEENT exam pupils round reactive light. Active motions are intact. Moist mucous membranes. Neck nontender no JVD. No lymphadenopathy. Lungs clear to auscultation bilaterally. Heart regular rhythm rate about 80 no murmur. Chest wall ribs nontender. Abdomen soft, nontender, nondistended, normal bowel sounds without peritoneal signs. Moving all 4 extremities. Nontender no edema. Normal strength. Back nontender. Neurologically she is awake and alert no focal motor deficits. Answering questions following commands. Const Vital Signs: 05/01/24 11:06 Temperature 97.2 F L Temperature Source Temporal Pulse Rate 84 Respiratory Rate 15 Blood Pressure 148/94 H Blood Pressure Mean 112 Pulse Ox 99 Oxygen Delivery Method Room Air Positive well nourished and well developed; Negative for cachectic, contractures or unkempt General Appearance ED: well developed and NAD; Negative for unkempt, cachectic, contractures or pallor Nutritional Appearance: Negative for cachectic HEENT Reports moist mucous membranes normocephalic and atraumatic Eyes PERRL General Eye ED: Negative for pale conjunctiva or scleral icterus Neck no lymphadenopathy, supple and no JVD General: Negative for tenderness Carotids: Negative for other Resp normal respiratory effort and clear to auscultation bilaterally Cardio regular rate, regular rhythm, S1 normal heart sound, S2 normal heart sound and no murmurs GI non-tender, non-distended and no masses Inspection: Negative for abdominal distention Auscultation: normoactive bowel sounds Palpation: soft; Negative for tender, guarding, hernia, mass, pulsatile mass or rebound tenderness present Back/Spine no CVA tenderness Extremity full ROM General Extremety ED: Negative for edema or tenderness General Extremity: Negative for edema Neuro CN's II-XII intact bilaterally and moves all extremities Sensorium / Orientation: alert, oriented to person, oriented to place and oriented to time; Negative for orientation impaired, confused, lethargic or stuporous Motor Exam: strength 5/5 throughout Psych mental status grossly normal and thought process normal Appearance: Negative for unkempt Mood & Affect: anxious Skin no wounds General Skin Exam: Negative for jaundice or pallor Lesions: no lesions Rashes: no rashes Trauma: Negative for abrasion Nails: Negative for discolored MDM MDM MDM Narrative Medical decision making narrative: 23-year-old female with 2-month history of nausea and vomiting. She is a prior labs all which were negative including yesterday. She has had a CT of the end of February which was unremarkable. There is seen GI and has a endoscopy appointment for May. Explained to her normal and there is really nothing else to do at this time. There is no other workup to do to the emergency department. She has a benign exam. She is not dehydrated. This may or may not be secondary to her anxiety versus other etiologies. Reportedly she does not use marijuana so I do not think is cannabis induced vomiting. Dr. Cole discharged home with outpatient follow-up. History & Record Review Discussion w/independent historian: Patient Additional record(s) reviewed:: Prior inpatient record, Prior outpatient record, Prior ED visit and Prior labs Discharge Plan Triage Chief Complaint: Nausea/Vomiting ED Provider: Corky Villegas Dx/Rx/DC Orders Clinical Impression: Nausea and vomiting Instructions: ED Vomiting (Adult) Prescriptions: No Action cetirizine [Zyrtec] 10 mg tablet 10 mg PO QDAY fluticasone propionate [Flonase Allergy Relief] 50 mcg/actuation spray,suspension 1 spray intranasal QDAY PRN Rx Instructions: administer into each nostril guaifenesin [Mucinex] 1,200 mg tablet extended release 12hr 1,200 mg PO ONCE PRN (Reason: congestion) Patient Comments: takes PRN for allergies/drainage omeprazole 40 mg capsule,delayed release(DR/EC) 40 mg PO BID 90 Days Qty: 180 1RF Rx Instructions: Take 30 minutes before breakfast and 4 hours after dinner metoclopramide HCl [Reglan] 5 mg tablet 5 mg PO Q6H PRN (Reason: nausea and vomiting) Qty: 20 0RF hydroxyzine pamoate 25 mg capsule 50 mg PO TID PRN PRN (Reason: Anxiety) Qty: 30 0RF levonorgestrel-ethinyl estrad [Aviane] 0.1-20 mg-mcg tablet 1 tab PO QDAY Qty: 84 4RF ondansetron 4 mg tablet,disintegrating 4 mg PO Q6H PRN (Reason: nausea and vomiting) Qty: 60 1RF fluoxetine 10 mg capsule 30 mg PO QDAY Qty: 90 1RF propranolol 20 mg tablet 20 mg PO BID Qty: 60 0RF Primary Care Provider: Ariella Green Referrals: Ariella Green MD [Primary Care Provider] - As Needed Activity Restrictions/Additional Instructions: Call and follow-up with Dr. Osorio's office. See if they can put you on a cancellation list to get your scope done earlier. Use your Zofran and/or Reglan for your nausea. [place] diet increase slowly as tolerated. Print Language: Filipino Disposition Disposition: Home, Self Care
[2024-05-01 12:51] VITALS: BP 148/94; PULSE 84; RESP 15; TEMP 36.2; O2SAT 99
== END 2024-05-01 12:52 | disposition home or self-care (01) ==
PROVIDERS: Emergency Provider Emergency Medicine; PCP Internal Medicine; Visit Provider Emergency Medicine
DX: R11.2 Nausea with vomiting, unspecified (principal)
CPT/HCPCS: 99282

== ENCOUNTER → 2024-05-03 | Outpatient (CLI) | payer OTHER, SELFPAY ==
--- NOTE | 2024-05-03 10:46 | US_ITS ---
PROCEDURE: ABDOMEN LIMITED REASON FOR EXAM: Two-month history of nausea and vomiting. COMPARISON: None FINDINGS: Liver: Grossly normal size and echotexture. Gallbladder: Small amount of sludge is seen along the gallbladder lumen. No evidence of gallstones. The gallbladder wall is not thickened. Common bile duct: Normal measuring it measures 3 mm. Pancreas: Visualized portions are sonographically unremarkable. Visualized portions of the right kidney are unremarkable. No right upper quadrant ascites. US/Abdomen Limited IMPRESSION: Small amount of sludge seen along the dependent portion of the gallbladder lume n. Reading Location: [id number]
[2024-05-06 09:08] LABS: Calprotectin, Stool 126 ug/g (0-120)
== END | disposition home or self-care (01) ==
LOC: US 10:42
PROVIDERS: PCP Internal Medicine; Referring Provider Nurse Practitioner Acute Care; Visit Provider Nurse Practitioner Acute Care
DX: R10.9 Unspecified abdominal pain (principal); R11.2 Nausea with vomiting, unspecified
CPT/HCPCS: 76705; 83993

== ENCOUNTER → 2024-06-10 | Outpatient (CLI) | payer OTHER, SELFPAY ==
--- NOTE | 2024-06-10 09:23 | MRI_ITS ---
PROCEDURE: ENTEROGRAPHY [facility] 06/10/2024 REASON FOR EXAM: R10.9 - UNSPECIFIED ABDOMINAL PAIN TECHNIQUE: Multisequence multiplanar MRI of the abdomen and pelvis was performed with and without IV contrast. IV contrast: 16 mL Clariscan PO contrast: 1500 mL Breeza COMPARISON: 05/03/2024 and prior FINDINGS: Note that the exam was optimized for evaluation of the bowel rather than the remaining abdominopelvic viscera and as such some upper abdominal viscera are excluded from the [id number]. Note also that dynamic T2 and diffusion sequences were note that not performed. Variable overall mild motion limitation, with some sequences being moderately motion degraded. Liver: Grossly unremarkable as imaged. Spleen: Unremarkable. Gallbladder/biliary: Layering possible gallbladder sludge. Pancreas: Unremarkable. Adrenals: Unremarkable. Kidneys: Unremarkable. Bowel: Allowing for suboptimal distention of the jejunum as is not uncommon, there are no convincing areas of abnormal bowel wall thickening, hyperemia, mural stratification, or dilatation. No definite evidence of fistulization or abscess. Redemonstrated intramural fat deposition within the bernstein of the colon at some levels. Appendix not definitively identified, seen previously and unremarkable on CT 02/2024. Lymph nodes: Unremarkable. Vasculature: Unremarkable. Peritoneum: Unremarkable. Bladder: Unremarkable. Reproductive Organs: Unremarkable. Body Wall: Unremarkable. Bones: Unremarkable. MRI/Enterography Abd/Pel IMPRESSION: 1. No convincing MR evidence of active inflammatory bowel disease. Redemonstrat ed intramural fat deposition within the bernstein of the colon at some levels which is nonspecific but can be seen in chronic inflam mation or obesity. 2. Additional description as above. Reading Location: [id number]
[2024-06-10 10:39] VITALS: BP 143/94; PULSE 85; RESP 18; O2SAT 98; BMI 33.8
[2024-06-10] MEDS: 0.9% Saline Lock 10 ML Syringe IV (11:16)
[2024-06-10] MEDS: Glucagon 1 MG/ML Syringe IV (11:16)
[2024-06-10 11:37] VITALS: BP 142/72; PULSE 83; RESP 18; O2SAT 98
== END | disposition home or self-care (01) ==
LOC: MRI 09:20
PROVIDERS: PCP Internal Medicine; Referring Provider Nurse Practitioner Acute Care; Visit Provider Nurse Practitioner Acute Care
DX: R10.9 Unspecified abdominal pain (principal); R14.0 Abdominal distension (gaseous)
CPT/HCPCS: 74183; A9575; A4216; J1610

== ENCOUNTER 2024-06-18 06:02 | Day surgery (SDC) | payer OTHER, SELFPAY ==
[2024-06-18] VITALS (8 sets, daily range): BP systolic 133–137; BP diastolic 83–97; PULSE 63–94; RESP 14–18; TEMP 36.1–36.8; O2SAT 99–100; BMI 35.3
--- NOTE | 2024-06-18 06:30 | PCM.PRE.AN2 ---
ASA Classification* ASA Classification ASA Classification: 2 Assessment & Plan Anesthesia* Anesthesia Assessment Anesthesia Assessment: Discussed sedation and/or anesthesia options, risks, benefits, and alternatives with patient/parents/legal guardian/POA. Questions invited. The patient/parents/legal guardian/POA seems to understand and agrees to proceed with anesthesia plan. Reviewed the physical assessment, medical history, allergy history and patient home medications list prior to surgery/procedure/anesthetic and documented any changes. Performed airway and anesthesia risk assessments. Anesthesia Type Anesthesia Type: MAC History Source History Obtained from:: Patient and Chart Anesthesia Focused Assessment* Temperature: 98.0 F Pulse Rate: 94 Blood Pressure: 134/83 Respiratory Rate: 18 Pulse Ox: 100 Oxygen Delivery Method: Room Air Airway Assessment Mouth opens: >3 cm Mallampati Score: III Teeth Condition: Intact Neck Range of motion (ROM): Full ROM Focused Labs Anesthesia Preop lab: CBC WBC 9.8 K/mm3 (4.4-11.0) 04/30/24 05:15 04/30/24 RBC 5.39 M/mm3 (4.2-5.4) 04/30/24 05:15 04/30/24 Hgb 15.5 g/dL (12.0-15.0) H 04/30/24 05:15 04/30/24 Hct 45.3 % (37-47) 04/30/24 05:15 04/30/24 Plt Count 333 K/mm3 (150-450) 04/30/24 05:15 04/30/24 CHEMISTRY Potassium 3.9 mmol/L (3.3-5.1) 04/30/24 05:15 04/30/24 Sodium 136 mmol/L (133-145) 04/30/24 05:15 04/30/24 BUN 8 mg/dL (4-19) 04/30/24 05:15 04/30/24 Creatinine 0.79 mg/dL (0.70-1.20) 04/30/24 05:15 04/30/24 Glucose 115 mg/dL (70-99) H 04/30/24 05:15 04/30/24 TSH 0.782 uIU/mL (0.358-3.740) 03/27/24 11:36 03/27/24 COAG Urine Test Negative Negative 04/30/24 06:38 04/30/24 Pre-Assessment Diagnosis/Proposed Procedure Planned Operative Procedure(s): EGD Anesthesia History Anesthesia History - mushroom packer: Anesthesia History - mushroom packer Hx Hospitalization No 06/14/24 15:51 Any Problems With Anesthesia No: NO SURGERY HX 06/14/24 15:51 Cholinesterase deficiency No 06/14/24 15:51 You/Your Family Experience No 06/14/24 15:51 fever (hyperthermia) with Relationship Recent Exposure to Contagious No 06/18/24 06:20 Disease Does patient have nerve No 06/14/24 15:51 stimulator Patient instructed to have device shut off --Does patient have Pacemaker No 06/18/24 06:20 or ICD? When Was Last Pacemaker Check QUESTION #4 FULL TEXT: You/Your Family Experience fever (hyperthermia) with Anesthesia Last Oral Intake Last Oral intake: Last Oral Intake NPO since 05:15 06/18/24 06:20 Meds taken in AM with sips of Yes 06/18/24 06:20 water? Meds patient instructed to omeprazole 06/18/24 06:20 take am of surgery Any additional information?: Yes Meds taken in AM with sips of water?: Yes PONV PONV - mushroom packer: PONV - mushroom packer Female Yes 06/14/24 15:51 HX of Motion Sickness Yes 06/14/24 15:51 HX of N/V After Surgery No 06/14/24 15:51 Non-Smoker Yes 06/14/24 15:51 Duration of Surgery greater No 06/14/24 15:51 than 60 minutes Number of Risk Factors 3 06/14/24 15:51 PONV Score Moderate Risk 06/14/24 15:51 Height & Weight Height & Weight: Anesthesia: Height & Weight Height 5 ft 2 in 06/18/24 06:20 Weight: 87.6 kg 06/18/24 06:20 Body Mass Index (BMI) 35.3 06/18/24 06:20 Respiratory Assessment Respiratory Assessment - mushroom packer: Respiratory Tract Infection Hx - mushroom packer Hx Respiratory Tract Infection No 06/14/24 15:51 STOP Sleep Apnea STOP Sleep Apnea - mushroom packer: STOP Sleep Apnea - mushroom packer Hx Hypertension No 06/14/24 15:51 Hx Sleep Apnea No 06/14/24 15:51 CPAP BIPAP Do you snore loudly (louder No 06/14/24 15:51 than talking or can be heard Do you often feel tired/ No 06/14/24 15:51 fatigued/ sleepy during daytime? Has anyone observed you stop No 06/14/24 15:51 breathing during sleep? STOP Results Negative 06/14/24 15:51 QUESTION #5 FULL TEXT : Do you snore loudly (louder than talking or can be heard through closed doors)? Tobacco Use History Tobacco Use History - mushroom packer: Tobacco Use History - mushroom packer Tobacco Use Smoking Status Never smoker 06/14/24 15:51 Hx Tobacco Use No 06/14/24 15:51 Years Smoking Packs Smoked per Day Smoking Cessation Date was within the last 15 years Hx Smoking Cessation Date Hx Smoking Cessation Counseling Hematologic Medial History Hematologic Hx - mushroom packer: Hematologic Medical Hx - rn clinical documentation Hx of Blood Transfusion No 06/14/24 15:51 Hx of Transfusion in last 3 No 06/14/24 15:51 Months Date of Last Transfusion (if within last 3 months) Ever experience any problems No 06/14/24 15:51 with transfusion(s)? Specify any problems Hx of Preganancy in last 3 No 06/14/24 15:51 Months Nurse Filling Out Transfusion DSCHRIBER 06/14/24 15:51 & Questions: Date: 06/14/24 06/14/24 15:51 Time: 15:52 06/14/24 15:51 Patient unable to answer at this time (ie. confused, unrespo /Reproduction History /Reproductive History - mushroom packer: /Reproductive Hx- mushroom packer Hx Now No 06/14/24 15:51 Gestational Age (in weeks): EDC: Hx Hx Para Hx Section SAB No 06/14/24 15:51 PFSH Medical History (Updated 06/14/24 @ 15:57 by Liz Salcido) Anxiety Alcohol use Gastric reflux Asthma Non-smoker Elevated blood pressure reading without diagnosis of hypertension Screening for thyroid disorder Nausea and vomiting Gastritis Health care maintenance Home Medications ?Medication ?Instructions ?Recorded ?Last Taken ?Type cetirizine 10 mg tablet (Zyrtec) 10 mg PO QDAY 01/24/24 Unknown History fluticasone propionate 50 1 spray intranasal QDAY PRN 01/24/24 Unknown History mcg/actuation nasal allergy symptoms spray,suspension (Flonase Allergy Relief) guaifenesin 1,200 mg tablet, 1,200 mg PO ONCE PRN congestion 01/24/24 Unknown History extended release 12 hr (Mucinex) ondansetron 4 mg disintegrating 4 mg PO Q6H PRN nausea and 03/20/24 Unknown Rx tablet vomiting #60 tabs omeprazole 40 mg capsule,delayed 40 mg PO BID 3 months #180 caps 04/25/24 06/18/24 05:15 Rx release fluoxetine 10 mg capsule 30 mg (3 x 10 mg) PO QDAY #90 caps 04/29/24 Unknown Rx levonorgestrel-ethinyl estradiol 1 tab PO QDAY #84 tabs 05/06/24 Unknown Rx 0.1 mg-20 mcg tablet (Aviane) Allergy/AdvReac Type Severity Reaction Status Date / Time Seasonal Allergies: Uncoded Allergy Mild Other Verified 06/18/24 06:26 Family History Grandmother Breast cancer Anxiety Mother Anxiety Grandfather TIA (transient ischemic attack) Surgical History (Updated 06/14/24 @ 15:57 by Liz Salcido) No history of previous surgery Social History adopted: No household members: spouse current occupational status: employed 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 current occupational exposures/hazards: No Smoking Status: Never smoker alcohol intake: current alcohol intake frequency: a few times a month details: couple times per month substance use type: does not use what type of physical activity do you participate in: walking frequency: 1-2 times per week duration: 15-30 minutes/day seatbelt use: always do you feel safe at home: Yes Review of Systems (Anesthesia) ROS Narrative System reviewed and no additional complaints, except as documented.
[2024-06-18 06:40] LABS: Internal QC Validated? YES +Cl - CLEAR BKGD; Pregnancy, Urine Negative Negative
--- NOTE | 2024-06-18 07:00 | EGD_PTH ---
PATIENT: ESTEBAN MONIQUE LOC: [facility] U#:[id number] AGE/SX: 23/F ROOM: RE06/18/[address]: Dr. Arslan Osorio DO : 2000 BED: DIS: 06/18/2024 SPEC #: [id number] RECD: 06/18/24 11:17 STATUS: GINETTE REQ #: [id number] ADEOLA: 06/18/24 07:[address]: Arslan Osorio DEPT: SURGICAL PATHOLOGY RECD BY: Camilo Jones ENTERED: 06/18/24 11:17 SP TYPE: EGD BIOPSY JAYME DR: Dr. Ariella Green MD Tissues: A - Duodenum, NOS B - Gastric mucous membrane C - Esophagus, NOS Procedures: Immunohistochemical Stains Surgery Specimen Level IV HEADER OPERATION: EGD biopsy PRE-OP DIAGNOSIS: Heartburn, bloating, nausea / vomiting, gastritis TISSUE SUBMITTED: A- Duodenum biopsy, B- Gastric body biopsy, C- Distal esophagus biopsy MICROSCOPIC DIAGNOSIS A. Small bowel, duodenum, biopsy: * Normal villous morphology with no specific pathologic change. * Negative for increased intraepithelial lymphocytes. B. Stomach, body, biopsy: * Oxyntic mucosa with slight chronic inflammation. * IHC negative for H pylori organisms. C. Distal esophagus, biopsy: * Squamous mucosa with no specific pathologic change. * Cardio-oxyntic mucosa negative for goblet cell metaplasia. MICROSCOPIC DESCRIPTION Slides are reviewed. These tests were developed and their performance characteristics determined by [facility]. They may not have been cleared or approved by the U.S. Food and Drug Administration. The FDA has determined that such clearance or approval is not necessary. The above immunohistochemical/dualISH markers are ordered and reviewed by the Pathologist. GROSS DESCRIPTION A. Received in formalin in a container labeled with the patient's name, date of , and duodenum biopsy are 2 cagle-pink fragments of mucosal tissue, each measuring 0.4 x 0.2 x 0.2 cm. Submitted in toto in A1. B. Received in formalin in a container labeled with the patient's name, date of , and gastric body biopsy x 2 are 2 cagle-pink fragments of mucosal tissue measuring 0.6 x 0.2 x 0.2 cm and 0.4 x 0.3 x 0.3 cm. Submitted in toto in B1. C. Received in formalin in a container labeled with the patient's name, date of , and distal esophagus biopsy is a 0.3 x 0.3 x 0.3 cm fragment of cagle-pink mucosal tissue. Submitted in toto in C1. SMB 06/18/2024 CPT:32920w9,59747
--- NOTE | 2024-06-18 07:15 | PCM.HP.STD ---
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[employer] - December 2023 waking in morning with bad HB and dry heaves - always feels bloated - she has tried eliminating foods - her bowel habits are irregular - can experience constipation for 1-2 days and then have a formed stools - history of diarrhea years ago - denies any fevers or night sweats - denies any family history of esophageal or colon CA - she denies any family h/o IBD - she tried GFD and this did not help - acidic foods cause worsening of HB B: often skips or a granola bar L: salad or dinner leftover D: protein, starch, vegetable - she started SSRI (prozac) about 3 weeks ago - symptoms were present prior to - water intake is pretty good CT A&P 03/18/2024 Submucosal thickening and edema in the gastric antrum and pyloric channel suggests gastritis Small and large bowel loops are decompressed. No CT evidence of obstruction or ileus. However, there is evidence of submucosal fat and position of bowel loops which can be a sign of inflammatory bowel disease. No suspicious solid organ abnormality No free intraperitoneal fluid, air, or suspicious adenopathy, normal appendix visualized [facility] Medical History Anxiety Alcohol use Gastric reflux Asthma Non-smoker Elevated blood pressure reading without diagnosis of hypertension Screening for thyroid disorder Nausea and vomiting Gastritis Health care maintenance Home Medications ?Medication ?Instructions ?Recorded ?Last Taken ?Type cetirizine 10 mg tablet (Zyrtec) 10 mg PO QDAY 01/24/24 Unknown History fluticasone propionate 50 1 spray intranasal QDAY PRN 01/24/24 Unknown History mcg/actuation nasal allergy symptoms spray,suspension (Flonase Allergy Relief) guaifenesin 1,200 mg tablet, 1,200 mg PO ONCE PRN congestion 01/24/24 Unknown History extended release 12 hr (Mucinex) ondansetron 4 mg disintegrating 4 mg PO Q6H PRN nausea and 03/20/24 Unknown Rx tablet vomiting #60 tabs omeprazole 40 mg capsule,delayed 40 mg PO BID 3 months #180 caps 04/25/24 06/18/24 05:15 Rx release fluoxetine 10 mg capsule 30 mg (3 x 10 mg) PO QDAY #90 caps 04/29/24 Unknown Rx levonorgestrel-ethinyl estradiol 1 tab PO QDAY #84 tabs 05/06/24 Unknown Rx 0.1 mg-20 mcg tablet (Aviane) Allergy/AdvReac Type Severity Reaction Status Date / Time Seasonal Allergies: Uncoded Allergy Mild Other Verified 06/18/24 06:26 Family History Grandmother Breast cancer Anxiety Mother Anxiety Grandfather TIA (transient ischemic attack) Surgical History No history of previous surgery Social History adopted: No household members: spouse current occupational status: employed 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 current occupational exposures/hazards: No Smoking Status: Never smoker alcohol intake: current alcohol intake frequency: a few times a month details: couple times per month substance use type: does not use what type of physical activity do you participate in: walking frequency: 1-2 times per week duration: 15-30 minutes/day seatbelt use: always do you feel safe at home: Yes ROS Constitutional Constitutional: Denies fatigue, fever(s), poor appetite, weight gain or weight loss Gastrointestinal Gastrointestinal: Denies belching, bloating, change in bowel habits, change in stool character, chewing difficulty, coffee ground emesis, constipation, cramping, diarrhea, dyspepsia, dysphagia, early satiety, excessive flatus, fecal incontinence, heartburn, hematemesis, hematochezia, hemorrhoids, loose stools, melena, nausea, odynophagia, rectal bleeding, tenesmus, vomiting or weight changes Vital Signs Vital Signs Vital Signs: 06/18/24 06:20 06/18/24 06:20 06/18/24 06:34 Temperature 98.0 F 98.0 F Temperature Source Temporal Pulse Rate 94 94 Respiratory Rate 18 18 Respiratory Pattern Normal Blood Pressure 134/83 H 134/83 H Blood Pressure Mean 100 Blood Pressure Source Monitor Blood Pressure Position Sitting Blood Pressure Location Right Arm Pulse Ox 100 100 Oxygen Delivery Method Room Air Room Air Weight Weight: 193 lb 1.999 oz Body Mass Index (BMI) 35.3 Physical Exam Const alert, oriented x3, no apparent distress and healthy appearing General Appearance: cooperative GI normal to inspection, nondistended, normoactive bowel sounds, soft to palpation, non-tender and non-distended Percussion: normal to percussion Rectal Exam: deferred Results Lab / Micro Data Labs: Laboratory Results - last 24 hr 06/18/24 06:15: Urine Test Negative Assessment & Plan Assessment/Plan (1) Heartburn: (2) Bloating: (3) Nausea and vomiting: (4) Gastritis: QUALIFIERS: Gastritis type: unspecified gastritis Chronicity: acute Gastritis bleeding: presence of bleeding unspecified Qualified Code(s): K29.00 - Acute gastritis without bleeding PLAN: Assessment and Plan Assessment and Plan (1) Gastroesophageal reflux disease: (2) Bloating: Status: Acute (3) Heartburn: Status: Acute Orders: Orders Calprotectin, Stool Today R12 - Heartburn, R14.0 - Abdominal distension (gaseous) Medications: Changed From famotidine (Pepcid) 20 mg PO QDAY PRN To famotidine (Pepcid) 20 mg PO QHS 90 tabs 1RF Plan 23y/o female presents for consultation with complaints of reflux. She reports a long history of generalized GI issues. She complains of HB improved with Omeprazole, chronic bloating and generalized abdominal discomfort. She reports a viral illness in February with three days of emesis and reports Omeprazole was beneficial prior to this viral illness. She is taking Pepcid and ondansetron PRN. CT completed during episode of gastroenteritis revealed gastritis. She does experience constipation with incomplete evacuation. I have added pepcid at HS and scheduled her for an EGD. I have recommended she start a probiotic and fiber supplement daily. She will trial a lactose free diet and follow-up post EGD. Lastly, CT was also questioned IBD she will complete a fecal calprotectin. Patient Instructions: FiberCon 2 tablets once daily with 8 ounces of water after a meal. May take up to 3 weeks for symptom improvement. Start a probiotic (Odoo (formerly OpenERP), DentLight or [email or web address]) once daily. These are all multispecies probiotics, pick the cheapest one. EGD Complete stool testing Continue Omeprazole 40mg every morning Pepcid 20mg at HS Follow-up one week post EGD Trial lactose free diet x2 weeks
--- NOTE | 2024-06-18 07:32 | PCM.POST.ANE ---
Anesthesia: Postop Eval I Current Vital Signs Temperature: 97 F Pulse Rate: 78 Blood Pressure: 133/87 Respiratory Rate: 14 Pulse Ox: 99 Oxygen Delivery Method: Room Air Assessment Airway patent: Yes Spontaneous unlabored respirations: Yes Mental status: Awake nausea: No Vomiting: No Anesthesia Complication: No Fluid Hydration Crystalloid volume administer (ml): 10 Total IV fluid infused: 10 Progress Note Anesthesia document: Postop Eval 1 completed: Yes
--- NOTE | 2024-06-18 07:35 | OP.EGD_ITS ---
Patient Name: Lety Wild Procedure Date: 06/18/2024 7:17 AM Date of : 2000 Age: 23 Procedure: Upper GI endoscopy Indications: Epigastric abdominal pain, Dyspepsia Providers: Arslan Osorio DO Referring MD: Ariella Green MD Medicines: Monitored Anesthesia Care Patient Profile: This is a 23 year old female. Refer to note in patient chart for documentation of history and physical. Patient has symptoms of chronic abdominal cramping, chronic epigastric abdominal pain, chronic dyspepsia and chronic nausea. Complications: No immediate complications. Procedure: Pre-Anesthesia Assessment: - Prior to the procedure, a History and Physical was performed, and patient medications and allergies were reviewed. The patient is competent. The risks and benefits of the procedure and the sedation options and risks were discussed with the patient. All questions were answered and informed consent was obtained. Patient identification and proposed procedure were verified by the physician in the pre-procedure area. Mental Status Examination: alert and oriented. Airway Examination: normal oropharyngeal airway and neck mobility. Respiratory Examination: clear to auscultation. CV Examination: normal. Prophylactic Antibiotics: The patient does not require prophylactic antibiotics. Prior Anticoagulants: The patient has taken no anticoagulant or antiplatelet agents except for NSAID medication. ASA Grade Assessment: II - A patient with mild systemic disease. After reviewing the risks and benefits, the patient was deemed in satisfactory condition to undergo the procedure. The anesthesia plan was to use monitored anesthesia care (MAC). Immediately prior to administration of medications, the patient was re-assessed for adequacy to receive sedatives. The heart rate, respiratory rate, oxygen saturations, blood pressure, adequacy of pulmonary ventilation, and response to care were monitored throughout the procedure. The physical status of the patient was re-assessed after the procedure. After obtaining informed consent, the endoscope was passed under direct vision. Throughout the procedure, the patient's blood pressure, pulse, and oxygen saturations were monitored continuously. The Endoscope was introduced through the mouth, and advanced to the third part of the duodenum. Small bowel enteroscopy was deemed necessary. The upper GI endoscopy was accomplished without difficulty. The patient tolerated the procedure well. Scope In: 7:24:06 AM Scope Out: 7:28:15 AM Total Procedure Duration Time 0 hours 4 minutes 9 seconds Findings: The Z-line was irregular and was found 39 cm from the incisors. Biopsies were taken with a cold forceps for histology. Verification of patient identification for the specimen was done. Estimated blood loss was minimal. No gross lesions were noted in the gastric body and in the gastric antrum. Biopsies were taken with a cold forceps for histology. Biopsies were taken with a cold forceps for histology. Verification of patient identification for the specimen was done. Estimated blood loss was minimal. Biopsies were taken with a cold forceps for Helicobacter pylori testing. Verification of patient identification for the specimen was done. Estimated blood loss was minimal. There was a lot of bile acid seen in the stomach. Patchy mildly erythematous mucosa without active bleeding and with no stigmata of bleeding was found in the duodenal bulb. Biopsies were taken with a cold forceps for histology. Verification of patient identification for the specimen was done. Estimated blood loss was minimal. Impression: - Z-line irregular, 39 cm from the incisors. Biopsied. - No gross lesions in the gastric body and in the antrum, except for excessive bile acid. This area was biopsied. - Erythematous duodenopathy. Biopsied. Recommendation: - Discharge patient to home. - Resume previous diet. - Continue present medications. - Await pathology results. Procedure Code(s): --- Professional --- 22512, Small intestinal endoscopy, enteroscopy beyond second portion of duodenum, not including ileum; with biopsy, single or multiple CPT copyright 2021 [employer]. All rights reserved. The codes documented in this report are preliminary and upon ground crew lines person review may be revised to meet current compliance requirements. Arslan Osorio DO 06/18/2024 7:34:50 AM This report has been signed electronically. Number of Addenda: 0 Note Initiated On: 06/18/2024 7:17 AM
--- NOTE | 2024-06-18 07:35 | OP.CCLET_ITS ---
06/18/2024 Ariella Green MD [address] [place] [address] [place] [address] Re : Upper GI endoscopy procedure for Lety Wild Dear Dr. Green This procedure was performed on Tuesday, June 18, 2024. My impressions and recommendations are as follows: Impressions : - Z-line irregular, 39 cm from the incisors. Biopsied. - No gross lesions in the gastric body and in the antrum, except for excessive bile acid. This area was biopsied. - Erythematous duodenopathy. Biopsied. Recommendations : - Discharge patient to home. - Resume previous diet. - Continue present medications. - Await pathology results. My findings are described in the full procedure note, which is enclosed. If I can be of further assistance, please feel free to contact me at . Sincerely, Arslan Osorio, 06/18/2024 7:34:50 AM This report has been signed electronically.
--- NOTE | 2024-06-18 09:39 | POSTOPAN2_ITS ---
Anesthesia Postop Eval I Sum Postop Eval Completion status Anesthesia document: Postop Eval 1 completed: Yes Anesthesia Postop Eval I Summary Anesthesia Postop Eval I Summary: Anesthesia Postop Eval I: Assessment Summary Airway patent Yes 06/18/24 07:36 TOWER [email or web address] Spontaneous unlabored Yes 06/18/24 07:36 TOWER [email or web address] respirations Mental status Awake 06/18/24 07:36 TOWER [email or web address] nausea No 06/18/24 07:36 TOWER [email or web address] Vomiting No 06/18/24 07:36 TOWER [email or web address] Anesthesia Postop Eval I: Fluid Summary Crystalloid volume administer 10 06/18/24 07:36 TOWER [email or web address] (ml) Colloids volume administered ( ml) Blood Product volume administered (ml) Total IV fluid infused 10 06/18/24 07:36 TOWER [email or web address] Anesthesia Postop Eval I: Summary Notes Anesthesia Complication No 06/18/24 07:36 TOWER [email or web address] Anesthesia Complication Comment: Post-operative progress note Anesthesia: Postop Eval II Evaluation Mental status: Awake and Calm Pain Level: 0 nausea: No Vomiting: No Complications Anesthesia Complication: No
--- NOTE | 2024-06-18 09:39 | PCM.POSTANE2 ---
Anesthesia Postop Eval I Sum Postop Eval Completion status Anesthesia document: Postop Eval 1 completed: Yes Anesthesia Postop Eval I Summary Anesthesia Postop Eval I Summary: Anesthesia Postop Eval I: Assessment Summary Airway patent Yes 06/18/24 07:36 [employer]ENT [email or web address] Spontaneous unlabored Yes 06/18/24 07:36 [employer]UDENT [employer] respirations Mental status Awake 06/18/24 07:36 [employer]UDENT [employer] nausea No 06/18/24 07:36 STUDENT [employer] Vomiting No 06/18/24 07:36 STUDENT [employer]ARR Anesthesia Postop Eval I: Fluid Summary Crystalloid volume administer 10 06/18/24 07:36 STUDENT [email or web address].HBARR (ml) Colloids volume administered ( ml) Blood Product volume administered (ml) Total IV fluid infused 10 06/18/24 07:36 STUDENT [employer].HBARR Anesthesia Postop Eval I: Summary Notes Anesthesia Complication No 06/18/24 07:36 STUDENT [employer].HBARR Anesthesia Complication Comment: Post-operative progress note Anesthesia: Postop Eval II Evaluation Mental status: Awake and Calm Pain Level: 0 nausea: No Vomiting: No Complications Anesthesia Complication: No
== END 2024-06-18 08:12 | disposition home or self-care (01) ==
LOC: EN 06:03 → AC 06:06
PROVIDERS: Anesthesiology; PCP Internal Medicine; Referring Provider Internal Medicine; Visit Provider Internal Medicine Gastroenterology
PROC: 0DJ08ZZ Inspection of Upper Intestinal Tract, Via Natural or Artificial Opening Endoscopic (ICD-10-PCS; CPT 43235; principal; 2024-06-18 06:55)
DX: K29.00 Acute gastritis without bleeding (principal); K21.9 Gastro-esophageal reflux disease without esophagitis; G89.29 Other chronic pain; Z79.899 Other long term (current) drug therapy
CPT/HCPCS: 44361; 81025; 88305; 88342; A4216

== ENCOUNTER → 2025-02-10 | Outpatient (CLI) | payer OTHER, SELFPAY ==
[2025-02-11 21:07] LABS: Chlamydia By Nucleic Acid AMP Negative (Negative); Gonococcus By Nucleic Acid AMP Negative (Negative)
== END | disposition home or self-care (01) ==
LOC: LABSPEC 12:09
PROVIDERS: PCP Internal Medicine; Visit Provider Obstetrics & Gynecology
DX: O09.90 Supervision of high risk pregnancy, unspecified, unspecified trimester (principal); Z3A.00 Weeks of gestation of pregnancy not specified
CPT/HCPCS: 87086; 87088; 87491; 87591

== ENCOUNTER → 2025-02-17 | Outpatient (CLI) | payer OTHER, SELFPAY ==
[2025-02-17 16:58] LABS: Hematocrit 41.2 % (37-47); Hemoglobin 13.5 g/dL (12.0-15.0); Immature Granulocytes Count 0.020 X10^3/uL (0.0-0.0); Mean Corp Hgb Conc 32.8 g/dL (32-36); Mean Corpuscular Volume 85.3 fL (81-99); Mean Platelet Vol. 12.2 fl (6.2-12.0); NRBC Flagged by Analyzer 0 % (0-5); Platelet Count 319 K/mm3 (150-450); RBC Distribution Width CV 13.6 % (11.6-14.6); RBC Distribution Width SD 42.8 fl (35.1-43.9); Red Blood Count 4.83 M/mm3 (4.2-5.4); White Blood Count 7.9 K/mm3 (4.4-11.0)
[2025-02-17 17:51] LABS: HIV Nonreactive (Nonreactive); Hepatitis B Surface Antigen Nonreactive (Nonreactive); Hepatitis C Antibody Nonreactive (Nonreactive); Syphilis Antibodies Nonreactive (Nonreactive)
== END | disposition home or self-care (01) ==
PROVIDERS: Obstetrics & Gynecology; PCP Internal Medicine; Visit Provider Obstetrics & Gynecology
DX: O09.90 Supervision of high risk pregnancy, unspecified, unspecified trimester (principal); O99.210 Obesity complicating pregnancy, unspecified trimester; Z3A.00 Weeks of gestation of pregnancy not specified
CPT/HCPCS: 36415; 83036; 85025; 86703; 86762; 86780; 86803; 86850; 86900; 86901; 87340